=== PATIENT | male | born 1945 | race Caucasian/White ===

== ENCOUNTER → 2016-07-14 | Outpatient (REF) | payer MEDICARE, OTHER | LOC: M SFHCCLAY 07:50 | PROVIDERS: ATTEND Family Medicine | DX: I25.10 Atherosclerotic heart disease of native coronary artery without angina pectoris (principal) ==

== ENCOUNTER → 2016-07-21 | Outpatient (REF) | payer MEDICARE, OTHER ==
[2016-07-21 12:30] LABS: FREE T4 1.05 NG/DL (0.76-1.46)
[2016-07-21 13:01] LABS: THYROID PEROXIDASE ANTIBODY < 28.0 U/ML (<60.0)
== END ==
LOC: M SFHCCLAY 07:53
PROVIDERS: ATTEND Family Medicine
DX: I25.10 Atherosclerotic heart disease of native coronary artery without angina pectoris (principal); E03.9 Hypothyroidism, unspecified
CPT/HCPCS: 84439; 84443; 86376; G0463

== ENCOUNTER → 2017-01-31 | Outpatient (REF) | payer MEDICARE, OTHER ==
[2017-01-31 11:57] LABS: ANION GAP 5 MEQ/L (8-16); BLOOD UREA NITROGEN 12 MG/DL (7-18); CALCIUM LEVEL 8.9 MG/DL (8.8-10.2); CARBON DIOXIDE LEVEL 32 MEQ/L (21-32); CHLORIDE LEVEL 102 MEQ/L (98-107); CREATININE FOR GFR 0.91 MG/DL (0.70-1.30); GLOMERULAR FILTRATION RATE > 60.0 (>42); GLUCOSE, FASTING 111 MG/DL (83-110); POTASSIUM SERUM 4.3 MEQ/L (3.5-5.1); SODIUM LEVEL 139 MEQ/L (136-145)
== END ==
LOC: M SFHCCLAY 07:13
PROVIDERS: ATTEND Family Medicine
DX: F41.9 Anxiety disorder, unspecified (principal); E03.9 Hypothyroidism, unspecified

== ENCOUNTER → 2017-07-26 | Outpatient (REF) | payer MEDICARE, OTHER ==
[2017-07-26 11:58] LABS: ANION GAP 5 MEQ/L (8-16); BLOOD UREA NITROGEN 10 MG/DL (7-18); CALCIUM LEVEL 9.1 MG/DL (8.8-10.2); CARBON DIOXIDE LEVEL 30 MEQ/L (21-32); CHLORIDE LEVEL 104 MEQ/L (98-107); CHOLESTEROL LEVEL 152 MG/DL (<200); CHOLESTEROL RISK RATIO 2.491 (<5); CREATININE FOR GFR 0.85 MG/DL (0.70-1.30); FREE T4 1.01 NG/DL (0.76-1.46); GLOMERULAR FILTRATION RATE > 60.0 (>42); GLUCOSE, FASTING 91 MG/DL (70-100); HDL CHOLESTEROL 61 MG/DL (>40); NON-HDL-C 91 MG/DL; POTASSIUM SERUM 4.5 MEQ/L (3.5-5.1); SODIUM LEVEL 139 MEQ/L (136-145); TRIGLYCERIDES LEVEL 80 MG/DL (<150)
== END ==
LOC: M SFHCCLAY 07:36
DX: I25.10 Atherosclerotic heart disease of native coronary artery without angina pectoris (principal); E03.9 Hypothyroidism, unspecified
CPT/HCPCS: 84443

== ENCOUNTER → 2018-01-21 | Outpatient (CLI) | payer MEDICARE, OTHER | LOC: M SLEEP 19:45 | DX: G47.33 Obstructive sleep apnea (adult) (pediatric) (principal) | CPT/HCPCS: 95811 ==

== ENCOUNTER → 2018-01-30 | Outpatient (REF) | payer MEDICARE, OTHER ==
[2018-01-30 12:02] LABS: ALBUMIN/GLOBULIN RATIO 1.54 (1.00-1.93); ALKALINE PHOSPHATASE 88 U/L (45-117); ALT/SGPT 27 U/L (12-78); ANION GAP 4 MEQ/L (8-16); AST/SGOT 14 U/L (7-37); BILIRUBIN,TOTAL 0.7 MG/DL (0.2-1.0); BLOOD UREA NITROGEN 9 MG/DL (7-18); CALCIUM LEVEL 8.5 MG/DL (8.8-10.2); CARBON DIOXIDE LEVEL 32 MEQ/L (21-32); CHLORIDE LEVEL 103 MEQ/L (98-107); CHOLESTEROL LEVEL 165 MG/DL (<200); CREATININE FOR GFR 0.94 MG/DL (0.70-1.30); FREE T4 0.87 NG/DL (0.76-1.46); GLOMERULAR FILTRATION RATE > 60.0 (>42); GLUCOSE, FASTING 93 MG/DL (70-100); HDL CHOLESTEROL 55 MG/DL (>40); LDL CHOLESTEROL 95 MG/DL (<100); NON-HDL-C 110 MG/DL; POTASSIUM SERUM 4.6 MEQ/L (3.5-5.1); SODIUM LEVEL 139 MEQ/L (136-145); TOTAL PROTEIN 6.6 GM/DL (6.4-8.2); TRIGLYCERIDES LEVEL 76 MG/DL (<150)
== END ==
LOC: M SFHCCLAY 08:39
DX: E03.9 Hypothyroidism, unspecified (principal); I25.10 Atherosclerotic heart disease of native coronary artery without angina pectoris; K21.0 Gastro-esophageal reflux disease with esophagitis; G47.33 Obstructive sleep apnea (adult) (pediatric)
CPT/HCPCS: 84443

== ENCOUNTER → 2018-08-01 | Outpatient (CLI) | payer MEDICARE, OTHER ==
[~2018-08-01] MED LIST: ASPI81TA85 PO; ATOR40TA75 PO; CYAN500T8 PO; FERR1TAB8 PO; MAGN200T PO; MULTCAP PO; NITR0.4S14 SL; OMEP-218 PO; SERT-141 PO; VITA-157 PO
--- NOTE | 2018-08-01 10:01 | REP ---
AP pelvis and left hip: AP pelvis: Mineralization is normal. There are no pelvic fractures. There are no lytic, blastic or destructive changes. Particularly in the iliac crests. The sacroiliac articulations are unremarkable. There are calcifications in the pelvis bilaterally, likely phleboliths. The right and left hip articulations are unremarkable. Impression: Pelvic calcifications, likely phleboliths. The iliac crests are unremarkable. Otherwise, negative AP pelvis. Left hip two views: There is mild joint space narrowing. Mineralization is normal. There is no fracture or dislocation. There are no calcifications or foreign bodies. Impression: Mild joint space narrowing, likely early osteoarthritic change. Otherwise, negative left hip. Electronically Signed by Edy Wang MD 08/01/2018 09:52 A
== END ==
LOC: M CLY 09:04
PROVIDERS: ATTEND Family Medicine
DX: M16.12 Unilateral primary osteoarthritis, left hip (principal); M89.8X8 Other specified disorders of bone, other site
CPT/HCPCS: 73502; G0463

== ENCOUNTER → 2018-11-26 | Outpatient (REF) | payer MEDICARE, OTHER ==
[2018-11-26 12:18] LABS: CHOLESTEROL RISK RATIO 2.777 (<5)
== END ==
LOC: M LABDRAWC 11:15
PROVIDERS: ATTEND Internal Medicine Cardiovascular Disease
DX: E78.00 Pure hypercholesterolemia, unspecified (principal)

== ENCOUNTER → 2019-01-29 | Outpatient (REF) | payer MEDICARE, OTHER ==
[2019-01-29 11:25] LABS: HEMATOCRIT 37.9 % (42.0-52.0); HEMOGLOBIN 11.6 g/dl (13.5-17.5); MEAN CORPUSCULAR HEMOGLOBIN 24.1 pg (27.0-33.0); MEAN CORPUSCULAR HGB CONC 30.6 g/dl (32.0-36.5); MEAN CORPUSCULAR VOLUME 78.6 fl (80.0-96.0); PLATELET COUNT, AUTOMATED 241 10^3/uL (150-450); RED BLOOD COUNT 4.82 10^6/uL (4.30-6.10)
[2019-01-29 11:36] LABS: ALBUMIN 4.1 GM/DL (3.2-5.2); ALT/SGPT 26 U/L (12-78); BILIRUBIN,TOTAL 0.8 MG/DL (0.2-1.0); BLOOD UREA NITROGEN 13 MG/DL (7-18); CALCIUM LEVEL 9.2 MG/DL (8.8-10.2); CARBON DIOXIDE LEVEL 32 MEQ/L (21-32); CHLORIDE LEVEL 103 MEQ/L (98-107); CHOLESTEROL LEVEL 155 MG/DL (<200); CHOLESTEROL RISK RATIO 2.672 (<5); CREATININE FOR GFR 0.96 MG/DL (0.70-1.30); GLOMERULAR FILTRATION RATE > 60.0 (>42); GLUCOSE, FASTING 103 MG/DL (70-100); HDL CHOLESTEROL 58 MG/DL (>40); IRON (FE) 22 UG/DL (65-175); LDL CHOLESTEROL 78 MG/DL (<100); NON-HDL-C 97 MG/DL; PERCENT SATURATION 5.3 % (19.7-50.0); POTASSIUM SERUM 4.6 MEQ/L (3.5-5.1); SODIUM LEVEL 139 MEQ/L (136-145); TOTAL IRON BINDING CAPACITY 417 UG/DL (250-450); TRIGLYCERIDES LEVEL 94 MG/DL (<150)
== END ==
LOC: M SFHCCLAY 08:51
PROVIDERS: ATTEND Family Medicine
DX: D50.9 Iron deficiency anemia, unspecified (principal); E03.9 Hypothyroidism, unspecified; K21.9 Gastro-esophageal reflux disease without esophagitis; I25.10 Atherosclerotic heart disease of native coronary artery without angina pectoris

== ENCOUNTER 2019-03-05 11:01 | Day surgery (SDC) | payer MEDICARE, OTHER ==
[~2019-03-05] VITALS: Ht 172.7 cm; Wt 71.7 kg
[~2019-03-05 11:01] MED LIST changes: +NS 1,000 ML IV ONE
[2019-03-05] MEDS ORDERED: LIDOCAINE 2% INJ 100 MG/5 ML SDV (FOR ANES.) As Ordered ONE (13:12)
[2019-03-05] MEDS ORDERED: propofoL 200 MG/20 ML VIAL As Ordered ONE ×2 (13:12→14:15)
--- NOTE | 2019-03-05 14:23 | ROOR ---
Patient Name: Edy Rivera Procedure Date: 03/05/2019 2:05 PM Date of : 1945 Age: 74 Room: [facility] Gender: Male Note Status: Finalized Procedure: Upper GI endoscopy + Small bowel bx. Indications: Iron deficiency anemia Providers: Elvin Leon MD Referring MD: Kapil Jolley MD Requesting Provider: Medicines: Monitored Anesthesia Care Complications: No immediate complications. Procedure: Pre-Anesthesia Assessment: - The heart rate, respiratory rate, oxygen saturations, blood pressure, adequacy of pulmonary ventilation, and response to care were monitored throughout the procedure. The Endoscope was introduced through the mouth, and advanced to the second part of duodenum. The upper GI endoscopy was accomplished without difficulty. The patient tolerated the procedure well. Findings: The Z-line was variable and was found 35 cm from the incisors. Multiple biopsies were obtained with cold forceps for evaluation to rule out Mcmahon's Esophagus randomly at the gastroesophageal junction. A medium-sized hiatal hernia was present. No other significant abnormalities were identified in a careful examination of the stomach. Biopsies were taken with a cold forceps in the gastric antrum for Helicobacter pylori testing. The exam of the duodenum was otherwise normal. Biopsies for histology were taken with a cold forceps in the first portion of the duodenum for evaluation of celiac disease. The exam was otherwise without abnormality. Impression: - Z-line variable, 35 cm from the incisors. - Medium-sized hiatal hernia. - The examination was otherwise normal. - Multiple biopsies were obtained at the gastroesophageal junction. - Biopsies were taken with a cold forceps for Helicobacter pylori testing. - Biopsies were taken with a cold forceps for evaluation of celiac disease. - The examination was otherwise normal. Recommendation: - Patient has a contact number available for emergencies. The signs and symptoms of potential delayed complications were discussed with the patient. Return to normal activities tomorrow. Written discharge instructions were provided to the patient. - High fiber diet. - Discharge patient to home. - Continue present medications. - Await pathology results. - Telephone GI clinic for pathology results in 1 week. - Return to referring physician. - The findings and recommendations were discussed with the patient's family. Elvin Leon MD Elvin Leon MD 03/05/2019 2:22:56 PM Electronically signed by Elvin Leon MD Number of Addenda: 0 Note Initiated On: 03/05/2019 2:05 PM Estimated Blood Loss: Estimated blood loss: none.
--- NOTE | 2019-03-05 14:40 | ROOR ---
Patient Name: Edy Rivera Procedure Date: 03/05/2019 2:06 PM Date of : 1945 Age: 74 Room: [facility] Gender: Male Note Status: Finalized Procedure: Total Colonoscopy to Cecum Indications: Iron deficiency anemia Providers: Elvin Leon MD Referring MD: Kapil Jolley MD Requesting Provider: Medicines: Monitored Anesthesia Care Complications: No immediate complications. Procedure: Pre-Anesthesia Assessment: - The heart rate, respiratory rate, oxygen saturations, blood pressure, adequacy of pulmonary ventilation, and response to care were monitored throughout the procedure. The Colonoscope was introduced through the anus and advanced to the cecum, identified by appendiceal orifice and ileocecal valve. The colonoscopy was performed without difficulty. The patient tolerated the procedure well. The quality of the bowel preparation was excellent. Findings: The perianal and digital rectal examinations were normal. Non-bleeding internal hemorrhoids were found during retroflexion. The hemorrhoids were small and Grade I (internal hemorrhoids that do not prolapse). Multiple small and large-mouthed diverticula were found in the recto-sigmoid colon, sigmoid colon and descending colon. The exam was otherwise without abnormality on direct and retroflexion views. Impression: - Non-bleeding internal hemorrhoids. - Diverticulosis in the recto-sigmoid colon, in the sigmoid colon and in the descending colon. - The examination was otherwise normal on direct and retroflexion views. - No specimens collected. - The exam was otherwise normal to the cecum. Recommendation: - Patient has a contact number available for emergencies. The signs and symptoms of potential delayed complications were discussed with the patient. Return to normal activities tomorrow. Written discharge instructions were provided to the patient. - High fiber diet. - Discharge patient to home. - Continue present medications. - Repeat colonoscopy for symptoms only. - Return to referring physician. - The findings and recommendations were discussed with the patient's family. Elvin Leon MD Elvin Leon MD 03/05/2019 2:40:37 PM Electronically signed by Elvin Leon MD Number of Addenda: 0 Note Initiated On: 03/05/2019 2:06 PM Estimated Blood Loss: Estimated blood loss: none.
[2019-03-05 15:00] VITALS: BP 121/70
== END 2019-03-05 15:13 | disposition home or self-care (01) ==
LOC: M OPP 11:01
PROVIDERS: ATTEND Internal Medicine Gastroenterology
DX: K64.0 First degree hemorrhoids (principal); K57.30 Diverticulosis of large intestine without perforation or abscess without bleeding; D50.9 Iron deficiency anemia, unspecified; K22.8 Other specified diseases of esophagus; K44.9 Diaphragmatic hernia without obstruction or gangrene; Z79.82 Long term (current) use of aspirin; Z79.899 Other long term (current) drug therapy; Z95.5 Presence of coronary angioplasty implant and graft

== ENCOUNTER → 2019-09-12 | Outpatient (REF) | payer MEDICARE, OTHER ==
[~2019-09-12] MED LIST changes: -ASPI81TA85 PO; +ASPI81TA86 PO; -NS 1,000 ML IV ONE
[2019-10-30 08:26] LABS: CHOLESTEROL RISK RATIO 2.437 (<5)
== END ==
LOC: M LABDRAWC 13:56
PROVIDERS: ATTEND Internal Medicine Cardiovascular Disease
DX: E78.00 Pure hypercholesterolemia, unspecified (principal)

== ENCOUNTER → 2020-02-05 | Outpatient (REF) | payer MEDICARE, OTHER ==
[~2020-02-05] MED LIST changes: +CYAN500T14 PO; -CYAN500T8 PO
[2020-02-05 13:43] LABS: ALBUMIN 4.1 GM/DL (3.2-5.2); ALT/SGPT 37 U/L (12-78); BILIRUBIN,TOTAL 1.1 MG/DL (0.2-1.0); BLOOD UREA NITROGEN 12 MG/DL (7-18); CALCIUM LEVEL 8.8 MG/DL (8.8-10.2); CARBON DIOXIDE LEVEL 25 MEQ/L (21-32); CHLORIDE LEVEL 103 MEQ/L (98-107); CHOLESTEROL LEVEL 124 MG/DL (<200); CHOLESTEROL RISK RATIO 2.431 (<5); CREATININE FOR GFR 0.94 MG/DL (0.70-1.30); FREE T4 1.09 NG/DL (0.76-1.46); GLOMERULAR FILTRATION RATE > 60.0 (>42); GLUCOSE, FASTING 99 MG/DL (70-100); HDL CHOLESTEROL 51 MG/DL (>40); LDL CHOLESTEROL 59 MG/DL (<100); NON-HDL-C 73 MG/DL; POTASSIUM SERUM 5.1 MEQ/L (3.5-5.1); SODIUM LEVEL 136 MEQ/L (136-145); TOTAL PROTEIN 6.8 GM/DL (6.4-8.2); TRIGLYCERIDES LEVEL 70 MG/DL (<150)
== END ==
LOC: M SFHCCLAY 08:01
PROVIDERS: ATTEND Family Medicine
DX: I25.10 Atherosclerotic heart disease of native coronary artery without angina pectoris (principal); E03.9 Hypothyroidism, unspecified
CPT/HCPCS: 80053; 80061; 84439; 84443; G0463

== ENCOUNTER → 2020-02-10 | Outpatient (REF) | payer MEDICARE, OTHER ==
[2020-02-10 16:21] LABS: HEMATOCRIT 44.4 % (42.0-52.0); HEMOGLOBIN 14.7 g/dl (13.5-17.5); MEAN CORPUSCULAR HEMOGLOBIN 29.1 pg (27.0-33.0); MEAN CORPUSCULAR HGB CONC 33.1 g/dl (32.0-36.5); MEAN CORPUSCULAR VOLUME 87.9 fl (80.0-96.0); PLATELET COUNT, AUTOMATED 216 10^3/uL (150-450); RED BLOOD COUNT 5.05 10^6/uL (4.30-6.10); WHITE BLOOD COUNT 6.1 10^3/uL (4.0-10.0)
[2020-02-10 16:29] LABS: BLOOD UREA NITROGEN 11 MG/DL (7-18); CALCIUM LEVEL 9.3 MG/DL (8.8-10.2); CARBON DIOXIDE LEVEL 33 MEQ/L (21-32); CHLORIDE LEVEL 101 MEQ/L (98-107); CREATININE FOR GFR 0.88 MG/DL (0.70-1.30); GLOMERULAR FILTRATION RATE > 60.0 (>42); GLUCOSE, FASTING 104 MG/DL (70-100); POTASSIUM SERUM 4.3 MEQ/L (3.5-5.1); SODIUM LEVEL 136 MEQ/L (136-145); URIC ACID 3.4 MG/DL (3.5-7.2)
[2020-02-10 17:12] LABS: ERYTHROCYTE SEDIMENTATION RATE 2 mm/hr (0-20)
== END ==
LOC: M SFHCCLAY 11:44
PROVIDERS: ATTEND Family Medicine
DX: M54.42 Lumbago with sciatica, left side (principal)
CPT/HCPCS: 80048; 84550; 85027; 85652; 86140; 86200; G0463

== ENCOUNTER → 2020-02-11 | Outpatient (CLI) | payer MEDICARE, OTHER ==
--- NOTE | 2020-02-11 11:02 | REP ---
INDICATION: M54.42, ACUTE LEFT-SIDED LOW BACK PAIN W/SCIATICA Physical examination suggesting congenital hip dysplasia. COMPARISON: None. TECHNIQUE: Single AP view of the pelvis. FINDINGS: Single AP view of the pelvis demonstrates generalized age-related osteopenia and symmetric degenerative changes. Bilateral sacroiliac joints are relatively age-appropriate. Hip joints demonstrate minimal increased sclerosis to the acetabular roof and mild joint space narrowing (right greater than left). No acute fracture or dislocation. IMPRESSION: Age-related degenerative changes. <Electronically signed by Catracho Butler > 02/11/20 2310
--- NOTE | 2020-02-11 11:03 | REP ---
INDICATION: M54.42, ACUTE LEFT-SIDED LOW BACK PAIN W/SCIATICA COMPARISON: None. TECHNIQUE: AP, lateral, bilateral oblique, and coned-down views of the lumbar spine. FINDINGS: Alignment and lordosis maintained. There is no evidence for acute fracture/compression injury or subluxation. Moderate to advanced multilevel degenerative changes include osteophytosis, endplate sclerosis, osteophytosis and hypertrophic facet changes. Findings most pronounced at L5-S1. IMPRESSION: Osteopenia and moderate to advanced multilevel degenerative spondylosis. No acute fracture/compression injury or subluxation. <Electronically signed by Catracho Butler > 02/11/20 1100
== END ==
LOC: M CLY 10:26
PROVIDERS: ATTEND Family Medicine
DX: M54.42 Lumbago with sciatica, left side (principal)

== ENCOUNTER → 2020-03-10 | Outpatient (CLI) | payer MEDICARE, OTHER ==
--- NOTE | 2020-03-10 14:54 | REPVR ---
PROCEDURE INFORMATION: Exam: MR Lumbar Spine Without Contrast. Exam date and time: 03/10/2020 2:35 PM Age: 75 years old Clinical indication: Low back pain; Additional info: Acute lt sided lbp w/ sciaticia h/o ddd lumbar TECHNIQUE: Imaging protocol: Multiplanar magnetic resonance images of the lumbar spine without intravenous contrast. COMPARISON: CR SPINE LS COMPLETE 02/11/2020 10:42 AM FINDINGS: Vertebrae: There is straightening of the normal lumbar lordosis. There is a mild lumbar levoscoliosis. There is 2 mm of grade 1 retrolisthesis of L1 with respect to L2, L2 with respect to L3, L3 with respect to L4, L4 with respect to L5 and L5 with respect to L1. There is moderate to severe intervertebral disc space loss at L5/S1. Spinal cord: Normal signal. No cord compression. L1-L2: There is shallow disc bulging/uncovering related to listhesis. There is mild facet and ligamentous hypertrophy. There is mild right neural foraminal narrowing. L2-L3: There is shallow disc bulging/uncovering related to listhesis. There is mild facet and ligamentous hypertrophy. The spinal canal and neural foramina are patent. L3-L4: There is diffuse disc bulging/uncovering related to listhesis. There is moderate facet hypertrophy. There is mild bilateral neural foraminal narrowing. L4-L5: There is diffuse disc bulging/uncovering related to listhesis. There is moderate facet and ligamentous hypertrophy. There is mild bilateral neural foraminal narrowing. L5-S1: There is diffuse disc bulging/uncovering related to listhesis. There is moderate facet hypertrophy. There is mild canal stenosis. There is moderate to severe right and severe left neural foraminal narrowing. Soft tissues: Unremarkable. IMPRESSION: Degenerative disc disease and spondylosis. At L5/S1, changes contribute to moderate to severe right and severe left neural foraminal narrowing. Electronically signed by: Nupur Reddy On 03/10/2020 14:54:26 PM
== END ==
LOC: M RAD 13:45
PROVIDERS: ATTEND Family Medicine
DX: M54.42 Lumbago with sciatica, left side (principal); M51.36 Other intervertebral disc degeneration, lumbar region

== ENCOUNTER 2021-01-11 14:26 | Emergency (ER) | payer MEDICARE, OTHER ==
[~2021-01-11] VITALS: Ht 172.7 cm; Wt 68.4 kg
[~2021-01-11 14:26] MED LIST changes: +OMEP-173 PO; -OMEP-218 PO; -VITA-157 PO; +VITAE40CA PO
[2021-01-11 15:06] LABS: BASO % 0.7 % (0.0-1.0); EOS # 0.1 10^3/uL (0.0-0.5); EOS % 1.4 % (0.0-3.0); HEMATOCRIT 41.3 % (42.0-52.0); HEMOGLOBIN 14.1 g/dl (13.5-17.5); LYMPH # 1.3 10^3/uL (1.5-5.0); LYMPH % 21.9 % (24.0-44.0); MEAN CORPUSCULAR HEMOGLOBIN 29.7 pg (27.0-33.0); MEAN CORPUSCULAR HGB CONC 34.1 g/dl (32.0-36.5); MEAN CORPUSCULAR VOLUME 87.1 fl (80.0-96.0); MONO # 0.5 10^3/uL (0.0-0.8); NEUTROPHILS # 3.8 10^3/uL (1.5-8.5); NEUTROPHILS % 66.7 % (36.0-66.0); PLATELET COUNT, AUTOMATED 185 10^3/uL (150-450); RED BLOOD COUNT 4.74 10^6/uL (4.30-6.10); WHITE BLOOD COUNT 5.8 10^3/uL (4.0-10.0)
[2021-01-11] MEDS ORDERED: KETOROLAC 30 MG/ML 1ML VIAL IV ONE (15:10)
[2021-01-11 15:46] LABS: ALBUMIN 3.9 GM/DL (3.2-5.2); ALT/SGPT 44 U/L (12-78); BILIRUBIN,DIRECT 0.3 MG/DL (0.0-0.2); BILIRUBIN,TOTAL 1.2 MG/DL (0.2-1.0); BLOOD UREA NITROGEN 9 MG/DL (7-18); CARBON DIOXIDE LEVEL 29 MEQ/L (21-32); CHLORIDE LEVEL 102 MEQ/L (98-107); CREATININE FOR GFR 0.82 MG/DL (0.70-1.30); GLOMERULAR FILTRATION RATE > 60.0 (>42); GLUCOSE, FASTING 86 MG/DL (70-100); SODIUM LEVEL 137 MEQ/L (136-145); TOTAL PROTEIN 6.7 GM/DL (6.4-8.2)
[2021-01-11 15:47] LABS: NT-PRO BNP 146 PG/ML (<450)
[2021-01-11 16:29] LABS: RSV AMPLIFICATION NEGATIVE (NEGATIVE)
[2021-01-11] MEDS ORDERED: ISOVUE-370 76% 100ML VIAL As Ordered ONE (16:48)
[2021-01-11 19:30] VITALS: BP 124/75
== END 2021-01-11 20:26 | disposition home or self-care (01) ==
LOC: M ED 14:26 → EDBD 14:26 → M ED 20:26
DX: R07.89 Other chest pain (principal); I45.10 Unspecified right bundle-branch block; I25.10 Atherosclerotic heart disease of native coronary artery without angina pectoris; I25.2 Old myocardial infarction; K21.9 Gastro-esophageal reflux disease without esophagitis; G47.33 Obstructive sleep apnea (adult) (pediatric); N40.0 Benign prostatic hyperplasia without lower urinary tract symptoms; E78.5 Hyperlipidemia, unspecified; Z79.899 Other long term (current) drug therapy
CPT/HCPCS: 71045; 71275; 80048; 80076; 83880; 84443; 84484; 85025; 87631; 93005; 93041; 94760; 96374; 99285; Q9967

== ENCOUNTER → 2021-02-02 | Outpatient (REF) | payer MEDICARE, OTHER ==
[~2021-02-02] MED LIST changes: -OMEP-173 PO; +OMEP-218 PO
[2021-02-02 11:47] LABS: HEMOGLOBIN 14.4 g/dl (13.5-17.5); MEAN CORPUSCULAR HEMOGLOBIN 29.7 pg (27.0-33.0); MEAN CORPUSCULAR HGB CONC 33.5 g/dl (32.0-36.5); MEAN CORPUSCULAR VOLUME 88.7 fl (80.0-96.0); PLATELET COUNT, AUTOMATED 202 10^3/uL (150-450); RED BLOOD COUNT 4.85 10^6/uL (4.30-6.10); WHITE BLOOD COUNT 5.4 10^3/uL (4.0-10.0)
[2021-02-02 12:21] LABS: ALBUMIN 4.1 GM/DL (3.2-5.2); ALT/SGPT 41 U/L (12-78); BILIRUBIN,TOTAL 1.1 MG/DL (0.2-1.0); BLOOD UREA NITROGEN 11 MG/DL (7-18); CALCIUM LEVEL 9.3 MG/DL (8.8-10.2); CARBON DIOXIDE LEVEL 31 MEQ/L (21-32); CHLORIDE LEVEL 101 MEQ/L (98-107); CHOLESTEROL LEVEL 125 MG/DL (<200); CHOLESTEROL RISK RATIO 2.314 (<5); CREATININE FOR GFR 0.82 MG/DL (0.70-1.30); FREE T4 1.31 NG/DL (0.76-1.46); GLOMERULAR FILTRATION RATE > 60.0 (>42); GLUCOSE, FASTING 96 MG/DL (70-100); HDL CHOLESTEROL 54 MG/DL (>40); LDL CHOLESTEROL 55 MG/DL (<100); NON-HDL-C 71 MG/DL; POTASSIUM SERUM 4.6 MEQ/L (3.5-5.1); SODIUM LEVEL 137 MEQ/L (136-145); TOTAL PROTEIN 6.8 GM/DL (6.4-8.2); TRIGLYCERIDES LEVEL 79 MG/DL (<150)
== END ==
LOC: M SFHCCLAY 09:21
PROVIDERS: ATTEND Family Medicine
DX: K21.9 Gastro-esophageal reflux disease without esophagitis (principal); E03.9 Hypothyroidism, unspecified; I25.10 Atherosclerotic heart disease of native coronary artery without angina pectoris; F41.9 Anxiety disorder, unspecified; I45.3 Trifascicular block
CPT/HCPCS: 80053; 80061; 84439; 84443; 85027; G0463

== ENCOUNTER → 2021-08-03 | Outpatient (REF) | payer MEDICARE, OTHER ==
[~2021-08-03] MED LIST changes: +OMEP-173 PO; -OMEP-218 PO
[2021-08-03 16:00] LABS: HEMATOCRIT 41.4 % (42.0-52.0); HEMOGLOBIN 14.4 g/dl (13.5-17.5); MEAN CORPUSCULAR HEMOGLOBIN 30.8 pg (27.0-33.0); MEAN CORPUSCULAR HGB CONC 34.8 g/dl (32.0-36.5); MEAN CORPUSCULAR VOLUME 88.5 fl (80.0-96.0); PLATELET COUNT, AUTOMATED 204 10^3/uL (150-450); RED BLOOD COUNT 4.68 10^6/uL (4.30-6.10); WHITE BLOOD COUNT 4.8 10^3/uL (4.0-10.0)
[2021-08-03 16:41] LABS: ALBUMIN 4.1 GM/DL (3.2-5.2); ALT/SGPT 35 U/L (12-78); BILIRUBIN,TOTAL 0.9 MG/DL (0.2-1.0); BLOOD UREA NITROGEN 10 MG/DL (7-18); CALCIUM LEVEL 9.3 MG/DL (8.8-10.2); CARBON DIOXIDE LEVEL 31 MEQ/L (21-32); CHLORIDE LEVEL 101 MEQ/L (98-107); CHOLESTEROL LEVEL 135 MG/DL (<200); CHOLESTEROL RISK RATIO 2.812 (<5); CREATININE FOR GFR 0.85 MG/DL (0.70-1.30); GLOMERULAR FILTRATION RATE > 60.0 (>42); GLUCOSE, FASTING 95 MG/DL (70-100); HDL CHOLESTEROL 48 MG/DL (>40); LDL CHOLESTEROL 67 MG/DL (<100); NON-HDL-C 87 MG/DL; POTASSIUM SERUM 4.7 MEQ/L (3.5-5.1); SODIUM LEVEL 138 MEQ/L (136-145); TOTAL PROTEIN 6.8 GM/DL (6.4-8.2); TRIGLYCERIDES LEVEL 100 MG/DL (<150)
[2021-08-03 16:42] LABS: FREE T4 0.97 NG/DL (0.76-1.46)
== END ==
LOC: M SFHCCLAY 09:38
PROVIDERS: ATTEND Family Medicine
DX: I25.10 Atherosclerotic heart disease of native coronary artery without angina pectoris (principal); H61.21 Impacted cerumen, right ear; K21.9 Gastro-esophageal reflux disease without esophagitis; R79.89 Other specified abnormal findings of blood chemistry; Z79.899 Other long term (current) drug therapy

== ENCOUNTER → 2022-08-23 | Outpatient (REF) | payer MEDICARE, OTHER ==
[2022-08-23 11:27] LABS: BASO % 0.8 % (0.0-1.0); EOS # 0.1 10^3/uL (0.0-0.5); EOS % 1.1 % (0.0-3.0); HEMATOCRIT 40.5 % (42.0-52.0); HEMOGLOBIN 13.8 g/dl (13.5-17.5); LYMPH % 19.1 % (24.0-44.0); MEAN CORPUSCULAR HEMOGLOBIN 30.3 pg (27.0-33.0); MEAN CORPUSCULAR HGB CONC 34.1 g/dl (32.0-36.5); MONO # 0.4 10^3/uL (0.0-0.8); MONO % 6.8 % (2.0-8.0); NEUTROPHILS # 3.8 10^3/uL (1.5-8.5); NEUTROPHILS % 71.6 % (36.0-66.0); PLATELET COUNT, AUTOMATED 186 10^3/uL (150-450); RED BLOOD COUNT 4.55 10^6/uL (4.30-6.10); WHITE BLOOD COUNT 5.3 10^3/uL (4.0-10.0)
[2022-08-23 11:41] LABS: THYROID STIMULATING HORMONE 4.337 uIU/ML (0.55-4.78)
[2022-08-23 11:42] LABS: FREE T4 0.97 NG/DL (0.89-1.76)
[2022-08-23 11:47] LABS: ALBUMIN 4.4 G/DL (3.2-5.2); ALKALINE PHOSPHATASE 107 U/L (46-116); ALT/SGPT 19 U/L (7.0-40); AST/SGOT 25 U/L (<34); BILIRUBIN,TOTAL 1.1 MG/DL (0.3-1.2); BLOOD UREA NITROGEN 10 MG/DL (9-23); CALCIUM LEVEL 8.9 MG/DL (8.3-10.6); CARBON DIOXIDE LEVEL 29 MMOL/L (20-31); CHLORIDE LEVEL 103 MMOL/L (98-107); CHOLESTEROL LEVEL 124 MG/DL (<200); CHOLESTEROL RISK RATIO 2.48 (<5); CREATININE FOR GFR 0.77 MG/DL (0.70-1.30); GLOMERULAR FILTRATION RATE > 60.0 (>42); GLUCOSE, FASTING 97 MG/DL (74-106); HDL CHOLESTEROL 49.8 MG/DL (>40); LDL CHOLESTEROL 58.6 MG/DL (<100); NON-HDL-C 74.2 MG/DL; POTASSIUM SERUM 4.4 MMOL/L (3.5-5.1); SODIUM LEVEL 138 MMOL/L (136-145); TOTAL PROTEIN 6.5 G/DL (5.7-8.2); TRIGLYCERIDES LEVEL 78 MG/DL (<150)
== END ==
LOC: M SFHCCLAY 09:01
PROVIDERS: ATTEND Family Medicine
DX: Z00.00 Encounter for general adult medical examination without abnormal findings (principal); I25.10 Atherosclerotic heart disease of native coronary artery without angina pectoris; H61.21 Impacted cerumen, right ear; R79.89 Other specified abnormal findings of blood chemistry; N40.1 Benign prostatic hyperplasia with lower urinary tract symptoms; Z79.899 Other long term (current) drug therapy

== ENCOUNTER → 2023-03-23 | Outpatient (REF) | payer MEDICARE, OTHER ==
[2023-03-23 13:36] LABS: HEMATOCRIT 43.5 % (42.0-52.0); HEMOGLOBIN 14.9 g/dl (13.5-17.5); MEAN CORPUSCULAR HEMOGLOBIN 30.5 pg (27.0-33.0); MEAN CORPUSCULAR HGB CONC 34.3 g/dl (32.0-36.5); MEAN CORPUSCULAR VOLUME 89.1 fl (80.0-96.0); PLATELET COUNT, AUTOMATED 222 10^3/uL (150-450); RED BLOOD COUNT 4.88 10^6/uL (4.30-6.10); WHITE BLOOD COUNT 7.5 10^3/uL (4.0-10.0)
[2023-03-23 14:07] LABS: BLOOD UREA NITROGEN 11 MG/DL (9-23); CALCIUM LEVEL 9.3 MG/DL (8.3-10.6); CARBON DIOXIDE LEVEL 31 MMOL/L (20-31); CHLORIDE LEVEL 105 MMOL/L (98-107); CREATININE FOR GFR 0.94 MG/DL (0.70-1.30); GLOMERULAR FILTRATION RATE > 60.0 (>42); GLUCOSE, FASTING 106 MG/DL (74-106); MAGNESIUM LEVEL 2.1 MG/DL (1.8-2.4); POTASSIUM SERUM 4.9 MMOL/L (3.5-5.1); SODIUM LEVEL 139 MMOL/L (136-145)
== END ==
LOC: M SFHCCLAY 08:48
PROVIDERS: ATTEND Family Medicine
DX: F41.9 Anxiety disorder, unspecified (principal); I25.10 Atherosclerotic heart disease of native coronary artery without angina pectoris; K21.9 Gastro-esophageal reflux disease without esophagitis; M54.42 Lumbago with sciatica, left side; G47.33 Obstructive sleep apnea (adult) (pediatric)

== ENCOUNTER → 2023-08-24 | Outpatient (REF) | payer MEDICARE, OTHER ==
[2023-08-24 13:20] LABS: HEMATOCRIT 40.3 % (42.0-52.0); HEMOGLOBIN 13.7 g/dl (13.5-17.5); MEAN CORPUSCULAR HEMOGLOBIN 29.6 pg (27.0-33.0); PLATELET COUNT, AUTOMATED 180 10^3/uL (150-450); RED BLOOD COUNT 4.63 10^6/uL (4.30-6.10); WHITE BLOOD COUNT 5.6 10^3/uL (4.0-10.0)
[2023-08-24 13:21] LABS: ALBUMIN 4.1 G/DL (3.2-5.2); ALKALINE PHOSPHATASE 111 U/L (46-116); ALT/SGPT 31 U/L (7.0-40); AST/SGOT 20 U/L (<34); BLOOD UREA NITROGEN 11 MG/DL (9-23); CALCIUM LEVEL 9.2 MG/DL (8.3-10.6); CARBON DIOXIDE LEVEL 32 MMOL/L (20-31); CHLORIDE LEVEL 105 MMOL/L (98-107); CHOLESTEROL LEVEL 125 MG/DL (<200); CHOLESTEROL RISK RATIO 2.77 (<5); CREATININE FOR GFR 0.85 MG/DL (0.70-1.30); GLOMERULAR FILTRATION RATE > 60.0 (>42); GLUCOSE, FASTING 99 MG/DL (74-106); LDL CHOLESTEROL 66.6 MG/DL (<100); POTASSIUM SERUM 4.5 MMOL/L (3.5-5.1); SODIUM LEVEL 140 MMOL/L (136-145); TOTAL PROTEIN 6.2 G/DL (5.7-8.2); TRIGLYCERIDES LEVEL 67 MG/DL (<150)
== END ==
LOC: M SFHCCLAY 08:11
PROVIDERS: ATTEND Family Medicine
DX: I25.10 Atherosclerotic heart disease of native coronary artery without angina pectoris (principal); F41.9 Anxiety disorder, unspecified; M54.42 Lumbago with sciatica, left side; G47.33 Obstructive sleep apnea (adult) (pediatric); K21.9 Gastro-esophageal reflux disease without esophagitis

== ENCOUNTER → 2023-08-29 | Outpatient (CLI) | payer MEDICARE, OTHER | LOC: M CLY 14:52 | PROVIDERS: ATTEND Family Medicine | DX: M16.0 Bilateral primary osteoarthritis of hip (principal) ==

== ENCOUNTER → 2024-02-26 | Outpatient (REF) | payer MEDICARE, OTHER ==
[2024-02-26 12:02] LABS: HEMOGLOBIN A1c 5.4 % (4.0-6.0)
[2024-02-26 12:05] LABS: ALBUMIN 4.4 G/DL (3.2-5.2); ALKALINE PHOSPHATASE 114 U/L (40-129); ALT/SGPT 35 U/L (7.0-40); AST/SGOT 26 U/L (<34); BILIRUBIN,TOTAL 1.2 MG/DL (0.3-1.2); BLOOD UREA NITROGEN 18 MG/DL (9-23); CARBON DIOXIDE LEVEL 30 MMOL/L (20-31); CHLORIDE LEVEL 104 MMOL/L (98-107); CHOLESTEROL LEVEL 152 MG/DL (<200); CHOLESTEROL RISK RATIO 2.73 (<5); CREATININE FOR GFR 1.04 MG/DL (0.70-1.30); GLOMERULAR FILTRATION RATE > 60.0 (>35); GLUCOSE, FASTING 96 MG/DL (74-106); HDL CHOLESTEROL 55.6 MG/DL (>40); LDL CHOLESTEROL 82.8 MG/DL (<100); MAGNESIUM LEVEL 2.2 MG/DL (1.8-2.4); NON-HDL-C 96.4 MG/DL; POTASSIUM SERUM 4.5 MMOL/L (3.5-5.1); PSA SCREENING 1.02 NG/ML (< 4.00); SODIUM LEVEL 139 MMOL/L (136-145); THYROID STIMULATING HORMONE 4.951 uIU/ML (0.55-4.78); TOTAL PROTEIN 7.3 G/DL (5.7-8.2); TRIGLYCERIDES LEVEL 68 MG/DL (<150)
[2024-02-26 12:06] LABS: FREE T4 1.16 NG/DL (0.89-1.76)
== END ==
LOC: M SFHCCLAY 09:02
PROVIDERS: ATTEND Physician Assistant
DX: I25.10 Atherosclerotic heart disease of native coronary artery without angina pectoris (principal); I35.0 Nonrheumatic aortic (valve) stenosis; F41.1 Generalized anxiety disorder; K21.9 Gastro-esophageal reflux disease without esophagitis; M16.11 Unilateral primary osteoarthritis, right hip; N40.1 Benign prostatic hyperplasia with lower urinary tract symptoms; G47.33 Obstructive sleep apnea (adult) (pediatric); E03.9 Hypothyroidism, unspecified; E83.42 Hypomagnesemia; Z79.899 Other long term (current) drug therapy; Z12.5 Encounter for screening for malignant neoplasm of prostate

== ENCOUNTER 2024-04-28 08:44 | Day surgery (SDC) | payer MEDICARE, OTHER ==
[~2024-04-28] VITALS: Ht 172.7 cm; Wt 68.3 kg
[~2024-04-28 08:44] MED LIST changes: +ECOT81TA5 PO; +LR 1,000 ML IV SCH; +THERTAB52 PO
[2024-04-28] MEDS: PHENYLEPHRINE 2.5% OPHTH SOL 2ML OD SCH (09:03)
[2024-04-28] MEDS: CYCLOPENTOLATE 1% OPHTH SOLN 2ML BTL OD SCH (09:03)
[2024-04-28] MEDS: TETRACAINE 0.5% OPHTH SOLN 4ML OD SCH (09:04)
[2024-04-28] MEDS: FLURBIPROFEN 0.03% OPHTH SOLN 2.5 ML OD SCH (09:04)
[2024-04-28] MEDS ORDERED: fentaNYL 100 MCG/2 ML INJECTION As Ordered ONE (09:45)
[2024-04-28] MEDS ORDERED: MIDAZOLAM INJ 2MG/2ML VIAL As Ordered ONE (09:46)
[2024-04-28] MEDS: LIDOCAINE 1% SDV 5ML VIAL As Ordered ONE (10:35)
[2024-04-28] MEDS: CEFUROXIME 1MG/0.1ML INTRACAMERAL INJ As Ordered ONE (10:37)
[2024-04-28 10:53] VITALS: BP 126/62; TEMP 97.4; O2SAT 95
== END 2024-04-28 11:27 | disposition home or self-care (01) ==
LOC: M SDC 08:44
PROVIDERS: ATTEND Ophthalmology
DX: H25.11 Age-related nuclear cataract, right eye (principal); I25.10 Atherosclerotic heart disease of native coronary artery without angina pectoris; E78.00 Pure hypercholesterolemia, unspecified; I25.2 Old myocardial infarction; I35.0 Nonrheumatic aortic (valve) stenosis; Z95.5 Presence of coronary angioplasty implant and graft; G47.33 Obstructive sleep apnea (adult) (pediatric); Z79.899 Other long term (current) drug therapy; Z79.82 Long term (current) use of aspirin; K21.9 Gastro-esophageal reflux disease without esophagitis; Z98.61 Coronary angioplasty status; F41.1 Generalized anxiety disorder
CPT/HCPCS: 66984; J0697; J2250; J3010; V2632

== ENCOUNTER 2024-06-19 08:46 | Emergency (ER) | payer MEDICARE, OTHER ==
[~2024-06-19] VITALS: Ht 172.7 cm; Wt 70.8 kg
[~2024-06-19 08:46] MED LIST changes: -LR 1,000 ML IV SCH
[2024-06-19 09:10] LABS: BASO % 0.4 % (0.0-1.0); EOS # 0.1 10^3/uL (0.0-0.5); EOS % 0.7 % (0.0-3.0); HEMATOCRIT 36.9 % (42.0-52.0); HEMOGLOBIN 12.5 g/dl (13.5-17.5); LYMPH # 0.9 10^3/uL (1.5-5.0); LYMPH % 12.4 % (24.0-44.0); MEAN CORPUSCULAR HEMOGLOBIN 29.6 pg (27.0-33.0); MEAN CORPUSCULAR HGB CONC 33.9 g/dl (32.0-36.5); MEAN CORPUSCULAR VOLUME 87.4 fl (80.0-96.0); MONO # 0.5 10^3/uL (0.0-0.8); MONO % 6.5 % (2.0-8.0); NEUTROPHILS # 5.6 10^3/uL (1.5-8.5); NEUTROPHILS % 79.7 % (36.0-66.0); PLATELET COUNT, AUTOMATED 168 10^3/uL (150-450); RED BLOOD COUNT 4.22 10^6/uL (4.30-6.10); WHITE BLOOD COUNT 7.1 10^3/uL (4.0-10.0)
[2024-06-19] MEDS ORDERED: EZET10TA21 (09:13)
[2024-06-19 09:41] LABS: CPK CREATINE PHOSPHOKINASE 75 U/L (46-171)
[2024-06-19 09:44] LABS: BLOOD UREA NITROGEN 15 MG/DL (9-23); CALCIUM LEVEL 8.4 MG/DL (8.3-10.6); CARBON DIOXIDE LEVEL 29 MMOL/L (20-31); CHLORIDE LEVEL 103 MMOL/L (98-107); CK-MB VALUE MASS < 1.0 NG/ML (<3.6); CREATININE FOR GFR 0.94 MG/DL (0.70-1.30); GLUCOSE, FASTING 112 MG/DL (74-106); MB/CK RELATIVE INDEX 1.33 (< OR =4); POTASSIUM SERUM 4.7 MMOL/L (3.5-5.1); SODIUM LEVEL 139 MMOL/L (136-145)
[2024-06-19 11:03] LABS: ALBUMIN 3.6 G/DL (3.2-5.2); ALKALINE PHOSPHATASE 112 U/L (40-129); ALT/SGPT 28 U/L (7.0-40); AST/SGOT 19 U/L (<34); BILIRUBIN,DIRECT 0.2 MG/DL (<0.4); BILIRUBIN,TOTAL 0.6 MG/DL (0.3-1.2); CK-MB VALUE MASS < 1.0 NG/ML (<3.6); CPK CREATINE PHOSPHOKINASE 69 U/L (46-171); LIPASE 42 U/L (12-53); MB/CK RELATIVE INDEX 1.44 (< OR =4); TOTAL PROTEIN 5.8 G/DL (5.7-8.2)
[2024-06-19] MEDS ORDERED: ISOVUE-370 76% 100ML VIAL As Ordered ONE (11:37)
[2024-06-19] MEDS: PANTOPRAZOLE 40MG VIAL IV ONE (12:16)
[2024-06-19] MEDS ORDERED: CARA1TAB6 PO (12:39)
[2024-06-19 12:43] VITALS: BP 123/67; TEMP 97.7; O2SAT 99
== END 2024-06-19 12:55 | disposition home or self-care (01) ==
LOC: EDBD 08:46 → M ED 08:46
DX: K21.00 Gastro-esophageal reflux disease with esophagitis, without bleeding (principal); I25.2 Old myocardial infarction; K21.9 Gastro-esophageal reflux disease without esophagitis; I10 Essential (primary) hypertension; E78.5 Hyperlipidemia, unspecified; G47.30 Sleep apnea, unspecified; N40.0 Benign prostatic hyperplasia without lower urinary tract symptoms; Z79.02 Long term (current) use of antithrombotics/antiplatelets; Z79.82 Long term (current) use of aspirin; Z79.899 Other long term (current) drug therapy
CPT/HCPCS: 71045; 71275; 80048; 80076; 82550; 82553; 83690; 84484; 85025; 93005; 93041; 94760; 96374; 99285; J2470; Q9967

== ENCOUNTER 2024-12-01 09:57 | Day surgery (SDC) | payer MEDICARE, OTHER ==
[~2024-12-01] VITALS: Ht 172.7 cm; Wt 65.3 kg
[~2024-12-01 09:57] MED LIST changes: +CARA1TAB6 PO; +EZET10TA57 PO; +LR 1,000 ML IV SCH; +MIDAZOLAM INJ 2 MG/2 ML VIAL As Ordered ONE; +ZOLO100T PO
[2024-12-01] MEDS: TETRACAINE 0.5% OPHTH SOLN 4ML OS SCH (10:27)
[2024-12-01] MEDS: FLURBIPROFEN 0.03% OPHTH SOLN 2.5 ML OS SCH (10:27)
[2024-12-01] MEDS: CYCLOPENTOLATE 1% OPHTH SOLN 2 ML BTL OS SCH (10:27)
[2024-12-01] MEDS: PHENYLEPHRINE 2.5% OPHTH SOL 2ML OS SCH (10:27)
[2024-12-01] MEDS: LIDOCAINE 1% SDV 5 ML VIAL As Ordered ONE (11:42)
[2024-12-01] MEDS: CEFUROXIME 1 MG/0.1 ML INTRACAMERAL INJ As Ordered ONE (11:44)
[2024-12-01 12:01] VITALS: BP 114/67; TEMP 97.2; O2SAT 99
== END 2024-12-01 12:21 | disposition home or self-care (01) ==
LOC: M SDC 09:57
PROVIDERS: ATTEND Ophthalmology
DX: H25.12 Age-related nuclear cataract, left eye (principal); I25.10 Atherosclerotic heart disease of native coronary artery without angina pectoris; I25.2 Old myocardial infarction; E78.00 Pure hypercholesterolemia, unspecified; G47.30 Sleep apnea, unspecified; K21.9 Gastro-esophageal reflux disease without esophagitis; Z79.899 Other long term (current) drug therapy; Z79.82 Long term (current) use of aspirin; Z95.1 Presence of aortocoronary bypass graft
CPT/HCPCS: 66984; J0697; J2250; J3010; V2632